=== PATIENT | male | born 1995 | race Caucasian/White ===

== ENCOUNTER 2017-04-17 17:35 | Inpatient (IN) | payer MEDICAID ==
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
[2017-04-17] MEDS ORDERED: ONDANSETRON 4 MG/2 ML VIAL IVP ONE (18:25)
[2017-04-17] MEDS ORDERED: NS 1,000 ML IV ONE (18:25)
[2017-04-17 19:20] LABS: ABSOLUTE IMMATURE GRANULOCYTES 0.21 10^3/uL (0.00-0.10); ADD DIFF? NO; ADD MORPH? NO; ADD SCAN? NO; ATYPICAL LYMPHOCYTE FLAG 0 (0-99); FRAGMENT RBC FLAG 0 (0-99); HEMATOCRIT 42.6 % (40.0-51.0); HEMOGLOBIN 14.8 g/dL (13.7-17.5); LEFT SHIFT FLG 0 (0-99); LIPEMIA HEMOLYSIS FLAG 90 (0-99); MEAN CELL HEMOGLOBIN 29.5 pg (27.9-34.1); MEAN CELL HEMOGLOBIN CONCENTR. 34.7 g/dL (32.4-36.7); MEAN CELL VOLUME 84.9 fL (81.5-99.8); MEAN PLATELET VOLUME 10.2 fL (8.7-11.7); PLATELET CLUMPS FLAG 0 (0-99); PLATELET COUNT 246 10^3/uL (150-400); RED BLOOD CELL COUNT 5.02 10^6/uL (4.40-6.38); RED CELL DISTRIBUTION WIDTH 12.9 % (11.5-15.2)
[2017-04-17 19:30] LABS: INR 1.14 (0.83-1.16); PROTIME(PATIENT) 14.5 SEC (12.0-15.0)
[2017-04-17 19:31] LABS: APTT 25.4 SEC (23.0-38.0)
[2017-04-17 19:39] LABS: ANION GAP 9 mEq/L (8-16); CALCIUM 8.8 mg/dL (8.5-10.4); CARBON DIOXIDE 22 mEq/l (22-31); CHLORIDE 104 mEq/L (97-110); CREATININE 0.6 mg/dL (0.7-1.3); GLOMERULAR FILTRATION RATE > 60; GLUCOSE 128 mg/dL (70-100); POTASSIUM 3.3 mEq/L (3.5-5.2); SODIUM 135 mEq/L (134-144)
[2017-04-17] MEDS ORDERED: IOPAMIDOL (ISOVUE-300) 100 ML BTL ONE (19:52)
[2017-04-17] MEDS: levETIRAcetam 750 MG in NS 100 ML IV SCH (21:48)
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
[2017-04-17] MEDS ORDERED: ONDANSETRON 4 MG/2 ML VIAL IVP PRN (23:31)
[2017-04-17] MEDS ORDERED: D5W 1/2 NS W/ 20 KCl/L 1,000 ML IV SCH (23:45)
[2017-04-18] MEDS: HYDROmorphONE/DILAUDID 2 MG/ML INJ IVP PRN ×2 (02:47→08:03)
[2017-04-18 04:27] LABS: % IMMATURE GRANULYOCYTES 0.5 % (0.0-1.1); ABSOLUTE IMMATURE GRANULOCYTES 0.08 10^3/uL (0.00-0.10); ADD DIFF? NO; ADD MORPH? NO; ADD SCAN? NO; ATYPICAL LYMPHOCYTE FLAG 0 (0-99); FRAGMENT RBC FLAG 0 (0-99); HEMATOCRIT 39.5 % (40.0-51.0); HEMOGLOBIN 13.6 g/dL (13.7-17.5); LEFT SHIFT FLG 0 (0-99); LIPEMIA HEMOLYSIS FLAG 90 (0-99); MEAN CELL HEMOGLOBIN 29.2 pg (27.9-34.1); MEAN CELL HEMOGLOBIN CONCENTR. 34.4 g/dL (32.4-36.7); MEAN CELL VOLUME 84.8 fL (81.5-99.8); MEAN PLATELET VOLUME 9.9 fL (8.7-11.7); PLATELET CLUMPS FLAG 0 (0-99); PLATELET COUNT 220 10^3/uL (150-400); RED BLOOD CELL COUNT 4.66 10^6/uL (4.40-6.38); RED CELL DISTRIBUTION WIDTH 13.1 % (11.5-15.2)
[2017-04-18 04:43] LABS: ANION GAP 11 mEq/L (8-16); CARBON DIOXIDE 24 mEq/l (22-31); CHLORIDE 103 mEq/L (97-110); CREATININE 0.6 mg/dL (0.7-1.3); GLOMERULAR FILTRATION RATE > 60; GLUCOSE 120 mg/dL (70-100); POTASSIUM 4.1 mEq/L (3.5-5.2); SODIUM 138 mEq/L (134-144)
--- NOTE | 2017-04-18 08:14 | PDGENHP ---
History and Physical History and Physical: chart reviewed images reviewed R segmental clavicle fx. 2 cm displacement with distal involvement. will see patient today will discuss pros and cons of surgical mgmt displacement and segmental nature lends itself towards improved results with surgery
[2017-04-18] MEDS ORDERED: levETIRAcetam 750 MG in NS 100 ML IV SCH (09:00)
[2017-04-18] MEDS: levETIRAcetam 750 MG in NS 100 ML IV SCH (09:19)
[2017-04-18] MEDS: levETIRAcetam 500 MG TAB PO SCH ×2 (09:23→20:35)
[2017-04-18] MEDS: OXYCODONE/APAP 5/325 TAB PO PRN ×3 (10:18→20:38)
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
[2017-04-19] MEDS: OXYCODONE/APAP 5/325 TAB PO PRN ×4 (02:38→19:43)
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
[2017-04-19] MEDS: levETIRAcetam 500 MG TAB PO SCH ×2 (09:26→20:31)
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
[2017-04-19 11:14] LABS: % IMMATURE GRANULYOCYTES 0.4 % (0.0-1.1); ABSOLUTE IMMATURE GRANULOCYTES 0.04 10^3/uL (0.00-0.10); ADD DIFF? NO; ADD MORPH? NO; ADD SCAN? NO; ATYPICAL LYMPHOCYTE FLAG 0 (0-99); FRAGMENT RBC FLAG 0 (0-99); HEMOGLOBIN 13.4 g/dL (13.7-17.5); LEFT SHIFT FLG 0 (0-99); LIPEMIA HEMOLYSIS FLAG 80 (0-99); MEAN CELL HEMOGLOBIN CONCENTR. 33.5 g/dL (32.4-36.7); MEAN CELL VOLUME 86.6 fL (81.5-99.8); PLATELET CLUMPS FLAG 10 (0-99); PLATELET COUNT 198 10^3/uL (150-400); RED BLOOD CELL COUNT 4.62 10^6/uL (4.40-6.38)
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
[2017-04-20] MEDS: OXYCODONE/APAP 5/325 TAB PO PRN ×4 (04:23→21:13)
[2017-04-20] MEDS ORDERED: LR 1,000 ML IV ONE (07:11)
[2017-04-20] MEDS ORDERED: LIDO/EPI 2%** Not for Epidural 20 ML MDV ONE (07:33)
[2017-04-20] MEDS ORDERED: BACITRACIN ZINC 14.2 GM OINTTUBE TP ONE (07:34)
[2017-04-20] MEDS ORDERED: BALANCED SALT IRRIG SOLN 15 ML OPHT.BTL ONE (07:34)
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
[2017-04-20] MEDS ORDERED: MIDAZOLAM 2 MG/2 ML VIAL IVP ONE (07:49)
[2017-04-20] MEDS ORDERED: PROPOFOL 200 MG/20 ML VIAL ONE ×2 (07:57)
[2017-04-20] MEDS ORDERED: fentaNYL 100 MCG/2 ML INJ ONE ×3 (07:57→11:04)
[2017-04-20] MEDS ORDERED: ROCURONIUM 50 MG/5 ML VIAL ONE (08:04)
[2017-04-20] MEDS ORDERED: LIDOCAINE 2% 5 ML SDV ONE (08:04)
[2017-04-20] MEDS ORDERED: METOCLOPRAMIDE 10 MG TAB ONE (08:06)
[2017-04-20] MEDS ORDERED: ceFAZolin 1 GM VIAL ONE ×2 (08:21)
[2017-04-20] MEDS ORDERED: DEXAMETHASONE 4 MG/ML VIAL ONE ×3 (08:21)
[2017-04-20] MEDS ORDERED: NALOXONE HCL 0.4 MG/ML INJ IVP PRN (09:08)
[2017-04-20] MEDS ORDERED: PROMETHAZINE HCL 25 MG/ML INJ IVP PRN (09:08)
[2017-04-20] MEDS ORDERED: MEPERIDINE 25 MG/ML SYR IVP PRN (09:08)
[2017-04-20] MEDS ORDERED: ONDANSETRON 4 MG/2 ML VIAL IVP PRN (09:08)
[2017-04-20] MEDS ORDERED: BACITRACIN OPHTHALMIC OPTH OINTMENT ONE (09:11)
[2017-04-20] MEDS ORDERED: PETROLAT,WHT/MIN OIL/SOD CHL 3.5 GM OPHT.OINT ONE (09:12)
[2017-04-20] MEDS ORDERED: ONDANSETRON 4 MG/2 ML VIAL ONE (10:04)
[2017-04-20] MEDS ORDERED: SUGAMMADEX SODIUM 200 MG/2 ML VIAL IVP ONE (10:22)
[2017-04-20] MEDS ORDERED: HYDROmorphONE/DILAUDID 1 MG/ML INJ ONE (11:04)
[2017-04-20] MEDS: fentaNYL 100 MCG/2 ML INJ IVP PRN (11:07)
[2017-04-20] MEDS: HYDROmorphONE/DILAUDID 1 MG/ML INJ IVP PRN ×2 (11:12→11:23)
[2017-04-20] MEDS: levETIRAcetam 500 MG TAB PO SCH ×2 (12:45→21:13)
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
--- NOTE | 2017-04-20 13:39 | POSTANESTH ---
Post Anesthetic Evaluation Cardiovascular Status: Normal, Stable, Similar to Pre-Op Cond Respiratory Status: Normal, Stable, Similar to Pre-op Cond. Level of Consciousness/Mental Status: Can Participate in Eval, Alert and Oriented Pain Control: Adequate, Prn Tx Ordered Nausea/Vomiting Control: Adequate, Prn Tx Ordered Complications Possibly Related to Anesthesia: None Noted
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
[2017-04-20] MEDS: BACITRACIN OPHTHALMIC OPTH OINTMENT RTEYE SCH ×3 (17:17→21:15)
[2017-04-20] MEDS: NS W/ 20 KCl/L 1,000 ML IV SCH (18:07)
[2017-04-21] MEDS ORDERED: LR 1,000 ML IV SCH (00:01)
[2017-04-21] MEDS: OXYCODONE/APAP 5/325 TAB PO PRN ×4 (02:40→22:44)
[2017-04-21] MEDS ORDERED: ROPIVACAINE HCL 20 MG/10 ML INJ EP ONE ×2 (07:37→09:20)
[2017-04-21] MEDS: levETIRAcetam 500 MG TAB PO SCH ×2 (07:55→20:07)
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
[2017-04-21] MEDS ORDERED: MIDAZOLAM 2 MG/2 ML VIAL IVP ONE (08:51)
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
[2017-04-21] MEDS ORDERED: fentaNYL 100 MCG/2 ML INJ ONE ×3 (08:58→11:04)
[2017-04-21] MEDS ORDERED: PROPOFOL/EMULSION 500 MG/50 ML BOTTLE IV ONE (08:58)
[2017-04-21] MEDS ORDERED: ROCURONIUM 50 MG/5 ML VIAL ONE (09:00)
[2017-04-21] MEDS ORDERED: MIDAZOLAM 2 MG/2 ML VIAL ONE (09:00)
[2017-04-21] MEDS ORDERED: LIDOCAINE 2% 100 MG/5 ML SYR ONE (09:00)
[2017-04-21] MEDS ORDERED: NALOXONE HCL 0.4 MG/ML INJ IVP PRN (10:06)
[2017-04-21] MEDS ORDERED: HYDROmorphONE/DILAUDID 1 MG/ML INJ IVP PRN (10:06)
[2017-04-21] MEDS ORDERED: ONDANSETRON 4 MG/2 ML VIAL IVP PRN (10:06)
[2017-04-21] MEDS ORDERED: fentaNYL 100 MCG/2 ML INJ IVP PRN (10:06)
[2017-04-21] MEDS ORDERED: MEPERIDINE 25 MG/ML SYR IVP PRN (10:06)
[2017-04-21] MEDS ORDERED: SUGAMMADEX SODIUM 200 MG/2 ML VIAL IVP ONE (10:11)
[2017-04-21] MEDS ORDERED: HYDROCODONE/APAP 5/325 TAB PO PRN (10:42)
[2017-04-21] MEDS ORDERED: ACETAMINOPHEN 325 MG TAB PO PRN (10:42)
[2017-04-21] MEDS ORDERED: D5W 1/2 NS W/ 20 KCl/L 1,000 ML IV SCH (10:45)
--- NOTE | 2017-04-21 10:47 | POSTANESTH ---
Post Anesthetic Evaluation Cardiovascular Status: Normal, Stable Respiratory Status: Normal, Stable Level of Consciousness/Mental Status: Can Participate in Eval Pain Control: Adequate, Prn Tx Ordered Nausea/Vomiting Control: Adequate, Prn Tx Ordered
[2017-04-21] MEDS ORDERED: HYDROmorphONE/DILAUDID 1 MG/ML INJ ONE (11:04)
[2017-04-21] MEDS: fentaNYL 100 MCG/2 ML INJ IVP PRN ×2 (11:12→11:26)
[2017-04-21] MEDS: BACITRACIN OPHTHALMIC OPTH OINTMENT RTEYE SCH ×3 (12:07→22:44)
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
[2017-04-21] MEDS: HYDROmorphONE/DILAUDID 2 MG/ML INJ IVP PRN (14:01)
[2017-04-21] MEDS: NS W/ 20 KCl/L 1,000 ML IV SCH (14:03)
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
--- NOTE | 2017-04-21 14:45 | ASMTCMCOM ---
CM Note CM Note Notes: Pt had surgery on facial fxs and clavicle Mother is now in [place] for support. Therapies clear pt. Anticipate pt will d/c when medically stable w support of mother and gf. CM available for changes/needs. Date Signed: 04/21/2017 02:44 PM Electronically Signed By:EMILY Hussein
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
[2017-04-21] MEDS ORDERED: MAGNESIUM HYDROXIDE 30 ML UDCUP PO PRN (17:36)
[2017-04-21] MEDS ORDERED: POLYETHYLENE GLYCOL 3350 17 GM PKT PO PRN (17:36)
[2017-04-21] MEDS ORDERED: BISACODYL 10 MG SUPP PR PRN (17:36)
[2017-04-21] MEDS ORDERED: LACTULOSE 20 GM/30 ML UDCUP PO PRN (17:36)
[2017-04-21] MEDS: SENNOSIDES/DOCUSATE SODIUM TAB PO SCH (20:07)
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
[2017-04-22] MEDS: HYDROmorphONE/DILAUDID 2 MG/ML INJ IVP PRN (00:02)
[2017-04-22] MEDS: OXYCODONE/APAP 5/325 TAB PO PRN ×3 (05:09→13:42)
[2017-04-22 07:42] VITALS: BP 134/78; PULSE 48; RESP 18; TEMP 98.5; O2SAT 96
[2017-04-22] MEDS: SENNOSIDES/DOCUSATE SODIUM TAB PO SCH (09:05)
[2017-04-22] MEDS: levETIRAcetam 500 MG TAB PO SCH (09:06)
[2017-04-22] MEDS: BACITRACIN OPHTHALMIC OPTH OINTMENT RTEYE SCH (09:21)
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
== END 2017-04-22 16:34 | disposition home or self-care (01) | DRG 958 ==
LOC: F3E 22:00 → F2N 04-18 00:12 → F3N 04-18 13:48
PROVIDERS: ADMIT Surgery; ATTEND Surgery
PROC: 0NSM04Z Reposition Right Zygomatic Bone with Internal Fixation Device, Open Approach (ICD-10-PCS; principal; 2017-04-20 08:30)
PROC: 0PS904Z Reposition Right Clavicle with Internal Fixation Device, Open Approach (ICD-10-PCS; 2017-04-21)
DX: S06.341A Traumatic hemorrhage of right cerebrum with loss of consciousness of 30 minutes or less, initial encounter (principal); S06.351A Traumatic hemorrhage of left cerebrum with loss of consciousness of 30 minutes or less, initial encounter; S06.4X1A Epidural hemorrhage with loss of consciousness of 30 minutes or less, initial encounter; R40.2411 Glasgow coma scale score 13-15, in the field [EMT or ambulance]; S27.321A Contusion of lung, unilateral, initial encounter; S27.0XXA Traumatic pneumothorax, initial encounter; S42.021A Displaced fracture of shaft of right clavicle, initial encounter for closed fracture; S02.31XA Fracture of orbital floor, right side, initial encounter for closed fracture; S02.40EA Zygomatic fracture, right side, initial encounter for closed fracture; S02.40CA Maxillary fracture, right side, initial encounter for closed fracture; S02.19XA Other fracture of base of skull, initial encounter for closed fracture; S22.050A Wedge compression fracture of T5-T6 vertebra, initial encounter for closed fracture; S22.060A Wedge compression fracture of T7-T8 vertebra, initial encounter for closed fracture; V14.4XXA Pedal cycle driver injured in collision with heavy transport vehicle or bus in traffic accident, initial encounter; Y92.414 Local residential or business street as the place of occurrence of the external cause; Y93.55 Activity, bike riding; Y99.8 Other external cause status
CPT/HCPCS: 92507-GN; 92523-GN; 96374; 97116-GP; 97162-GP; 97166-GO; 97530-GO; 97530-GP; 97535-GO; A4565; C1713; J0690; J1100; J1170; J1953; J2001; J2250; J2405; J2704; J2795; J3010; Q9967

== ENCOUNTER → 2017-05-18 | Outpatient (CLI) | payer MEDICAID | LOC: FIMAGING 09:18 | PROVIDERS: ATTEND Physician Assistant | DX: S22.000S Wedge compression fracture of unspecified thoracic vertebra, sequela (principal) ==

== ENCOUNTER → 2017-06-20 | Outpatient (CLI) | payer MEDICAID | LOC: FIMAGING 15:30 | PROVIDERS: ATTEND Neurological Surgery | DX: S22.050A Wedge compression fracture of T5-T6 vertebra, initial encounter for closed fracture (principal); S22.060A Wedge compression fracture of T7-T8 vertebra, initial encounter for closed fracture ==